=== PATIENT | female | born 1965 | race Caucasian/White ===

== ENCOUNTER 2016-12-29 13:35 | Emergency (ER) | payer OTHER ==
[2016-12-29 13:55] VITALS: BP 117/55; PULSE 68; TEMP 98; BMI 22.6
[2016-12-29 14:07] LABS: URINE APPEARANCE Cloudy; URINE BILIRUBIN Negative (NEGATIVE); URINE BLOOD Negative (NEGATIVE); URINE COLOR YELLOW; URINE GLUCOSE (UA) Negative (NEGATIVE); URINE KETONE Negative (NEGATIVE); URINE LEUK ESTERASE Negative (NEGATIVE); URINE NITRITE Negative (NEGATIVE); URINE PROTEIN Negative (NEGATIVE); URINE UROBILINOGEN 0.2 E.U/dl (0.2-1.0)
--- NOTE | 2016-12-29 14:55 | PDOC ---
History of Present Illness <Robel Dennis - Last Filed: 12/29/16 15:05> - History of Present Illness Initial Comments: History of Present Illness <Regina Santos - Last Filed: 12/29/16 14:52> - General History Source: Patient Exam Limitations: No Limitations - History of Present Illness Initial Comments: 12/29/16 14:55 The patient is a 51 year old female, with a significant past medical history of tubal ligation, uterine fibroids, endometrial ablation, who presents to the emergency department with LUQ pain for about an hour. The patient reports a sudden onset of LUQ pain a little after eating a vegetarian meal, and having left sided abdominal pain for about 40 minutes. She reports the pain was so intense she was doubled over in pain and was unable to speak secondary to pain. She reports during this episode of pain the abdominal pain would radiate to her stomach area . She describes her pain as sharp, ranking her pain a 5/10 in pain intensity. She reports also having feelings of nausea during the episode of abdominal pain. She reports 5-10 minutes prior to being seen in the ER her abdominal pain has decreased and subsided. Patient is a vegetarian for over 30 years. Patient denies having a bowel movement this morning. She denies recent fevers, chills, headache or dizziness. She denies recent vomit, diarrhea or constipation. She denies recent dysuria, frequency, urgency or hematuria. She denies recent chest pain or shortness of breath. She denies any other complaints at this time, and the remainder of the review of systems is negative. Allergies: Amoxicillin (hives) Past surgical history: Tubal ligation and Social history: Nonsmoker. Denies EtOH use and drug use. PCP: <Robel Dennis - Last Filed: 12/29/16 14:55> <Regina Santos - Last Filed: 12/31/16 21:09> - General Chief Complaint: Pain Stated Complaint: LUQ PAIN FOR 1 HOUR Time Seen by Provider: 12/29/16 14:00 Past History <Robel Dennis - Last Filed: 12/29/16 15:05> - Psycho/Social/Smoking Cessation Hx Anxiety: No Suicidal Ideation: No Smoking History: Never smoked Hx Alcohol Use: No Drug/Substance Use Hx: No Substance Use Type: None <ElliotBarbaraRegina webster - Last Filed: 12/31/16 21:09> - Past Medical History Allergies/Adverse Reactions: Allergies Allergy/AdvReac Type Severity Reaction Status Date / Time amoxicillin Allergy Mild Hives Verified 12/29/16 13:48 Home Medications: Ambulatory Orders Multivitamins [Tab-A-Vit -] 1 tab PO DAILY 12/29/16 *Physical Exam - Vital Signs Last Vital Signs Temp Pulse Resp BP Pulse Ox 98.0 F 68 15 117/55 100 12/29/16 13:46 12/29/16 13:46 12/29/16 13:46 12/29/16 13:46 12/29/16 13:46 <Robel Dennis - Last Filed: 12/29/16 15:05> - Vital Signs Last Vital Signs Temp Pulse Resp BP Pulse Ox 98.0 F 68 15 117/55 100 12/29/16 13:46 12/29/16 13:46 12/29/16 13:46 12/29/16 13:46 12/29/16 13:46 - Physical Exam Comments: 12/29/16 14:53 Physical exam Last Vital Signs Temp Pulse Resp BP Pulse Ox 98.0 F 68 15 117/55 100 12/29/16 13:46 12/29/16 13:46 12/29/16 13:46 12/29/16 13:46 12/29/16 13:46 GENERAL: The patient is awake, alert, and fully oriented, and in no apparent distress. HEAD: Normal with no signs of trauma. EYES: Sclera anicteric, conjunctiva normal ENT: Moist mucous membranes. NECK: Normal range of motion, supple LUNGS: Breath sounds equal, clear to auscultation bilaterally. No wheezes, and no crackles. HEART: Regular rate and rhythm, normal S1 and S2 without murmur, rub or gallop. ABDOMEN: The abdomen is soft with increased bowel sounds and increased borborygmi There is some mild left upper quadrant tenderness to palpation without guarding or rebound There is no other abdominal tenderness, there is no hepatosplenomegaly There is no CVA tenderness EXTREMITIES: Normal range of motion, no edema. No clubbing or cyanosis. No cords, erythema, or tenderness. NEUROLOGICAL: Cranial nerves II through XII grossly intact. Normal speech, normal gait. PSYCH: Normal mood, normal affect. SKIN: Warm, Dry, normal turgor, no rashes or lesions noted. <Regina Santos - Last Filed: 12/31/16 21:09> ED Treatment Course - ADDITIONAL ORDERS Additional order review: Laboratory Results 12/29/16 13:55 Urine Color Yellow Urine Appearance Cloudy Urine pH 8.0 Ur Specific Hines 1.015 Urine Protein Negative Urine Glucose (UA) Negative Urine Ketones Negative Urine Blood Negative Urine Nitrite Negative Urine Bilirubin Negative Urine Urobilinogen 0.2 e.u/dl Ur Leukocyte Esterase Negative <Robel Dennis - Last Filed: 12/29/16 15:05> - LABORATORY CBC & Chemistry Diagram: 12/29/16 15:00 12/29/16 15:00 - ADDITIONAL ORDERS Additional order review: Laboratory Results 12/29/16 13:55 Urine Color Yellow Urine Appearance Cloudy Urine pH 8.0 Ur Specific Hines 1.015 Urine Protein Negative Urine Glucose (UA) Negative Urine Ketones Negative Urine Blood Negative Urine Nitrite Negative Urine Bilirubin Negative Urine Urobilinogen 0.2 e.u/dl Ur Leukocyte Esterase Negative - RADIOLOGY Radiology Studies Ordered: Category Date Time Status ABDOMEN FLAT & UPRIGHT [RAD] Stat Radiology 12/29/16 14:51 Ordered <Regina Santos - Last Filed: 12/31/16 21:09> Medical Decision Making - Medical Decision Making 12/29/16 15:08 51-year-old female had the sudden onset of sharp left upper quadrant abdominal pain after eating vegetarian meal She she states she did not have a bowel movement this morning She describes the pain as sharp and stabbing, and occurring right after she She was nauseated but did not vomit She did not have a bowel movement this morning She denies any recent intercurrent illnesses She states the pain lasted an hour, and is now starting to fade and almost gone 12/29/16 17:29 Two-view abdomen Constipation, no signs of obstruction or free air Laboratory Results - last 24 hr 12/29/16 12/29/16 12/29/16 13:55 15:00 15:00 WBC 7.6 RBC 5.12 Hgb 13.3 Hct 40.2 MCV 78.5 L MCHC 33.1 RDW 14.1 Plt Count 233 MPV 8.7 Sodium 137 Potassium 4.1 Chloride 101 Carbon Dioxide 28 Anion Gap 8 BUN 21 H Creatinine 0.6 Creat Clearance w eGFR > 60 Random Glucose 92 Calcium 9.3 Total Bilirubin 0.4 AST 24 ALT 22 Alkaline Phosphatase 57 Total Protein 7.0 Albumin 4.0 Urine Color Yellow Urine Appearance Cloudy Urine pH 8.0 Ur Specific Hines 1.015 Urine Protein Negative Urine Glucose (UA) Negative Urine Ketones Negative Urine Blood Negative Urine Nitrite Negative Urine Bilirubin Negative Urine Urobilinogen 0.2 e.u/dl Ur Leukocyte Esterase Negative Patient feels much better now on pain is gone She now states that she hasn't had a bowel movement for 2 days We'll try some milk of magnesia tonight <Regina Santos - Last Filed: 12/31/16 21:09> *DC/Admit/Observation/Transfer <Robel Dennis - Last Filed: 12/29/16 15:05> <Regina Santos - Last Filed: 12/31/16 21:09> Diagnosis at time of Disposition: Constipation, Resolved abdominal pain - Discharge Dispostion Disposition: HOME Condition at time of disposition: Good - Referrals Referrals: Liz Connolly [Primary Care Provider] - - Patient Instructions Printed Discharge Instructions: Constipation, DI for Constipation Additional Instructions: you can try milk of magnesia or miralax tonight Increase fluid intake Followup with your primary care physician in 24-48 hours Return immediately if you worsen in any way Take your medications as directed
[2016-12-29 16:01] LABS: MCHC 33.1 g/dl (32.0-36.0); MEAN CELL VOLUME 78.5 fl (80-96); MEAN PLT VOLUME 8.7 fl (7.5-11.1); PLATELET COUNT 233 K/MM3 (134-434); RDW 14.1 % (11.6-15.6); WHITE BLOOD COUNT 7.6 K/mm3 (4.0-10.0)
[2016-12-29 16:20] LABS: ALK PHOS 57 U/L (32-92); ANION GAP 8 (8-16); BILIRUBIN,TOTAL 0.4 mg/dl (0.2-1.0); CALCIUM 9.3 mg/dl (8.4-10.2); CO2 28 mmol/L (22-28); CREATININE 0.6 mg/dl (0.6-1.3); GLUCOSE,RANDOM 92 mg/dl (74-106); SGOT/AST 24 U/L (10-42); SGPT/ALT 22 U/L (10-40)
== END 2016-12-29 17:39 | disposition home or self-care (01) ==
LOC: FER 13:35
DX: K59.00 Constipation, unspecified (principal); D25.9 Leiomyoma of uterus, unspecified
CPT/HCPCS: 36415; 74020-TC; 80053; 81003; 85027; 99283-25

== ENCOUNTER 2018-02-07 14:13 | Emergency (ER) | payer OTHER ==
[2018-02-07 14:30] VITALS: BP 103/69; PULSE 83; TEMP 98.9; BMI 23.0
--- NOTE | 2018-02-07 15:18 | PDOC ---
History of Present Illness - General History Source: Patient Exam Limitations: No Limitations - History of Present Illness Initial Comments: 02/07/18 15:24 The patient is a 52 year old female, with a significant past medical history of tubal ligation, uterine fibroids, endometrial ablation, who presents to the emergency department with, right calf pain for approx 3 hours. The patient states she was playing tennis around noon when she lunged forward and felt a pop in her right calf. She denies any falls or head strike/injury or loss of consciousness. The patient states that the right calf pain is made worse when walking or driving and alleviated while at rest. She denies any numbness, tingling or loss of sensation. She denies any neck or back pain. She denies recent fevers, chills, headache or dizziness. She denies recent nausea, vomit, diarrhea or constipation. She denies recent chest pain or shortness of breath. Allergies: Amoxicillin Past surgical history: Tubal ligation and Social history: Nonsmoker. Denies EtOH use and recreational drug use. Primary Care Physician: Dr. Connolly <Vic Mahmood - Last Filed: 02/07/18 15:36> <Vane Alcaraz - Last Filed: 02/10/18 08:07> - General Chief Complaint: Injury Stated Complaint: RIGHT CALF PAIN WHILE PLAYING TENNIS Time Seen by Provider: 02/07/18 15:08 Past History <Vic Mahmood - Last Filed: 02/07/18 15:36> - Past Medical History COPD: No Other medical history: DENIES - Suicide/Smoking/Psychosocial Hx Smoking History: Never smoked Information on smoking cessation initiated: No Hx Alcohol Use: No Drug/Substance Use Hx: No Substance Use Type: None <Vane Alcaraz - Last Filed: 02/10/18 08:07> - Past Medical History Allergies/Adverse Reactions: Allergies Allergy/AdvReac Type Severity Reaction Status Date / Time amoxicillin Allergy Mild Hives Verified 02/07/18 14:16 Home Medications: Ambulatory Orders Multivitamins [Tab-A-Vit -] 1 tab PO DAILY 12/29/16 Review of Systems - Review of Systems Comments:: 02/07/18 15:24 GENERAL/CONSTITUTIONAL: No fever or chills. No weakness. HEAD, EYES, EARS, NOSE AND THROAT: No change in vision. No ear pain or discharge. No sore throat. CARDIOVASCULAR: No chest pain or shortness of breath. RESPIRATORY: No cough, wheezing, or hemoptysis. GASTROINTESTINAL: No nausea, vomiting, diarrhea or constipation. GENITOURINARY: No dysuria, frequency, or change in urination. MUSCULOSKELETAL: +Right calf pain. No neck or back pain. SKIN: No rash NEUROLOGIC: No headache, vertigo, loss of consciousness, or change in strength/ sensation. ENDOCRINE: No increased thirst. No abnormal weight change. HEMATOLOGIC/LYMPHATIC: No anemia, easy bleeding, or history of blood clots. ALLERGIC/IMMUNOLOGIC: No hives or skin allergy. <Vic Mahmood - Last Filed: 02/07/18 15:36> *Physical Exam - Vital Signs Last Vital Signs Temp Pulse Resp BP Pulse Ox 98.9 F 83 16 103/69 97 02/07/18 14:15 02/07/18 14:15 02/07/18 14:15 02/07/18 14:15 02/07/18 14:15 - Physical Exam Comments: 02/07/18 15:36 GENERAL: Awake, alert, and fully oriented, in no acute distress HEAD: No signs of trauma EYES: PERRLA, EOMI, sclera anicteric, conjunctiva clear ENT: Auricles normal inspection, hearing grossly normal, nares patent, oropharynx clear without exudates. Moist mucosa NECK: Normal ROM, supple, no lymphadenopathy, JVD, or masses LUNGS: Breath sounds equal, clear to auscultation bilaterally. No wheezes, and no crackles HEART: Regular rate and rhythm, normal S1 and S2, no murmurs, rubs or gallops ABDOMEN: Soft, nontender, normoactive bowel sounds. No guarding, no rebound. No masses EXTREMITIES: +Tenderness to the medial portion of the right gastrocnemius. Normal range of motion, no edema. No clubbing or cyanosis. No cords, erythema. NEUROLOGICAL: Cranial nerves II through XII grossly intact. Normal speech, normal gait SKIN: Warm, Dry, normal turgor, no rashes or lesions noted. <Vic Mahmood Last Filed: 02/07/18 15:36> - Vital Signs Last Vital Signs Temp Pulse Resp BP Pulse Ox 98.9 F 83 16 103/69 97 02/07/18 14:15 02/07/18 14:15 02/07/18 14:15 02/07/18 14:15 02/07/18 14:15 <Vane Alcaraz - Last Filed: 02/10/18 08:07> Medical Decision Making - Medical Decision Making Achilles tendon function intact, however, patient having pain with ambulation. No bony tenderness. Improved with crutches. I recommended NSAIDs for inflammation. I suspect this is a muscular injury, however, recommended that she f/u with ortho in about 1 week if she does not have significant improvement. <Vane Alcaraz - Last Filed: 02/10/18 08:07> *DC/Admit/Observation/Transfer - Attestations Scribe Attestion: 02/07/18 15:25 Documentation prepared by Vic Mahmood, acting as medical artist for Vane Alcaraz MD. <Vic Mahmood - Last Filed: 02/07/18 15:36> - Discharge Dispostion Admit: No <Vane Alcaraz - Last Filed: 02/10/18 08:07> Diagnosis at time of Disposition: Gastrocnemius muscle strain Qualifiers: Encounter type: initial encounter Laterality: right Qualified Code(s): S86.111A - Strain of other muscle(s) and tendon(s) of posterior muscle group at lower leg level, right leg, initial encounter - Discharge Dispostion Disposition: HOME Condition at time of disposition: Stable - Referrals Referrals: Pro Freitas MD [Staff Physician] - - Patient Instructions Printed Discharge Instructions: DI for Calf Muscle Strain Additional Instructions: Motrin as needed for pain/inflammation. Follow up with orthopedics within 1 week.
== END 2018-02-07 15:45 | disposition home or self-care (01) ==
LOC: FER 14:13
DX: S86.111A Strain of other muscle(s) and tendon(s) of posterior muscle group at lower leg level, right leg, initial encounter (principal); X58.XXXA Exposure to other specified factors, initial encounter; Y93.73 Activity, racquet and hand sports; Y92.312 Tennis court as the place of occurrence of the external cause
CPT/HCPCS: 99281-25

== ENCOUNTER 2018-07-08 16:02 | Emergency (ER) | payer OTHER ==
[2018-07-08 16:16] VITALS: BP 113/81; PULSE 79; TEMP 98.7; BMI 23.3
--- NOTE | 2018-07-08 16:29 | PDOC ---
History of Present Illness - General Chief Complaint: Injury Stated Complaint: RT HAND INJURY Time Seen by Provider: 07/08/18 16:10 History Source: Patient Exam Limitations: No Limitations - History of Present Illness Initial Comments: 53 yo F no significant PMH presents with R hand pain. She states that it got caught in a heavy door 2 days ago, now having pain to the R hand over the 5th finger, at the base, and radiating into the wrist. No weakness, numbness. Past History - Past Medical History Allergies/Adverse Reactions: Allergies Allergy/AdvReac Type Severity Reaction Status Date / Time amoxicillin Allergy Mild Hives Verified 07/08/18 16:04 Home Medications: Ambulatory Orders NK [No Known Home Medication] 07/08/18 COPD: No - Suicide/Smoking/Psychosocial Hx Smoking History: Never smoked Have you smoked in the past 12 months: No Hx Alcohol Use: (social) Drug/Substance Use Hx: No Substance Use Type: None Review of Systems - Review of Systems Able to Perform ROS?: Yes Comments:: GENERAL/CONSTITUTIONAL: No fever or chills. No weakness. HEAD, EYES, EARS, NOSE AND THROAT: No change in vision. No ear pain or discharge. No sore throat. MUSCULOSKELETAL: +R hand pain. No neck or back pain. SKIN: No rash NEUROLOGIC: No headache, vertigo, loss of consciousness, or change in strength/ sensation. ENDOCRINE: No increased thirst. No abnormal weight change. HEMATOLOGIC/LYMPHATIC: No anemia, easy bleeding, or history of blood clots. ALLERGIC/IMMUNOLOGIC: No hives or skin allergy. *Physical Exam - Vital Signs Last Vital Signs Temp Pulse Resp BP Pulse Ox 98.7 F 79 18 113/81 99 07/08/18 16:02 07/08/18 16:02 07/08/18 16:02 07/08/18 16:02 07/08/18 16:02 - Physical Exam Comments: GENERAL: Awake, alert, and fully oriented, in no acute distress HEAD: No signs of trauma EYES: PERRLA, EOMI, sclera anicteric, conjunctiva clear ENT: Auricles normal inspection, hearing grossly normal, nares patent, oropharynx clear without exudates. Moist mucosa EXTREMITIES: +R hand with tenderness over the 5th metacarpal. No deformity noted. +Tenderness over the forearm, overlying the distal ulna. No deformity. Remainder of extremities with normal range of motion, no edema. No clubbing or cyanosis. No cords, erythema, or tenderness NEUROLOGICAL: Cranial nerves II through XII grossly intact. Normal speech, normal gait SKIN: Warm, Dry, normal turgor, no rashes or lesions noted. ED Treatment Course - RADIOLOGY Radiology Studies Ordered: 07/08/18 17:03 XR Hand and wrist reviewed, no acute findings. *DC/Admit/Observation/Transfer Diagnosis at time of Disposition: Contusion of hand Qualifiers: Encounter type: initial encounter Laterality: right Qualified Code(s): S60.221A - Contusion of right hand, initial encounter - Discharge Dispostion Disposition: HOME Condition at time of disposition: Stable Decision to Admit order: No - Referrals Referrals: Willie Grace [Primary Care Provider] - - Patient Instructions Printed Discharge Instructions: DI for Contusion - Post Discharge Activity
== END 2018-07-08 17:10 | disposition home or self-care (01) ==
LOC: FER 16:02
DX: S60.221A Contusion of right hand, initial encounter (principal); W20.8XXA Other cause of strike by thrown, projected or falling object, initial encounter; Y93.89 Activity, other specified; Y92.9 Unspecified place or not applicable
CPT/HCPCS: 73110-TC-RT-FY; 73130-TC-RT-FY; 99282-25

== ENCOUNTER 2019-07-17 10:56 | Emergency (ER) | payer OTHER | END 2019-07-17 13:06 | disposition home or self-care (01) | LOC: FER 10:56 ==

== ENCOUNTER 2019-09-29 15:18 | Emergency (ER) | payer OTHER ==
--- NOTE | 2019-09-29 15:24 | PDOC ---
History of Present Illness - General Chief Complaint: Vaginal Sxs Stated Complaint: VAGINAL PAIN, MOUTH LESION Time Seen by Provider: 09/29/19 15:24 History Source: Patient Exam Limitations: No Limitations - History of Present Illness Initial Comments: 54 year old female with PMH genital/oral herpes (diagnoes x20 years ago, only 2 genital outbreaks), STI (treated x20 years ago, unknown organism) presented to ED for vulvar pain x2 days. Pt reported she has had oral outbreaks when she is stressed, but doesnt usually have genital lesions. She reported 2 days of intense vulvar pain, worse with urination (mentioning that the urine will hurt the skin when it touches it). She admitted to bloody/green discharge x3 weeks to which she attributes to her menopause. She denied abdominal pain, fever, malaise, chest pain, shortness of breath. PT has no PCP or OBGYN because "I am a vegan and figure I am healthy". ROS General: denied fever, chills, generalized weakness. HEENT: denied sore throat, rhinorrhea, ear pain. Cardiovascular: denied chest pain, palpitations, syncope, diaphoresis. Respiratory: denied shortness of breath, cough, sputum production, hemoptysis. Gastrointestinal: denied abdominal pain, nausea, vomiting, diarrhea, constipation, blood in stool. Genitourinary: admitted to pelvic pain, dysuria, vaginal discharge, vaginal bleeding. denied increased urinary frequency, hematuria, urinary incontinence, flank pain. Back: denied back pain. Musculoskeletal: denied joint pain, muscle pain, joint swelling. Neurological: denied headache, dizziness, numbness, tingling, weakness. Integumentary: denied rash, laceration, abrasion. Hematologic/Lymphatic: denied bruising or bleeding. PE Constitutional: Well-nourished, Well-developed, appearing stated age. HEENT: head is normocephalic, atraumatic. EOMI. PERRLA. crusted circular lesion to lip. Neck: supple. Full ROM. Cardiovascular: regular heart rhythm. no murmurs. no pericardial friction rub. Respiratory: clear to auscultation bilaterally. no crackles, rhonchi or wheezing. no stridor. Gastrointestinal: soft, nontender. normal bowel sounds. no rebound, guarding, masses. Extremities: peripheral pulses intact. no lower extremity edema. Pelvic: pustular lesions with erythematous bases. erythematous vulva. no CMT. no adnexal tenderness. vaginal vault with no pooling, mild brown blood and white discharge noted. Neurological: CN 2-12 grossly intact. moves all four extremities. Psych: awake, alert, oriented x3. follows commands. answers questions appropriately. Past History - Past Medical History Allergies/Adverse Reactions: Allergies Allergy/AdvReac Type Severity Reaction Status Date / Time amoxicillin Allergy Mild Hives Verified 09/29/19 15:25 Home Medications: Ambulatory Orders Acyclovir [Zovirax -] 400 mg PO TID #15 tablet 09/29/19 - Psycho Social/Smoking Cessation Hx Smoking History: Never smoked Have you smoked in the past 12 months: No Hx Alcohol Use: No Drug/Substance Use Hx: No Substance Use Type: None Medical Decision Making - Medical Decision Making 54 year old female with above PMH presented to ED for vulvar pain x2 days and vaginal discharge/bleeding x3 weeks. Initial Vital Signs Temp Pulse Resp BP Pulse Ox 97.8 F 78 18 121/67 100 09/29/19 15:18 09/29/19 15:18 09/29/19 15:18 09/29/19 15:18 09/29/19 15:18 Afebrile. No tachycardia. No tachypnea. No hypotension. No hypoxia on room air. Labs ordered: UA/UC, GC/Chlamydia endocervical amplification Medications ordered: Imaging ordered: none 09/29/19 16:27 Urine Test Results Urine Color Yellow 09/29/19 16:02 Urine Appearance Clear 09/29/19 16:02 Urine pH 7.5 (4.5-8) 09/29/19 16:02 Urine Protein Negative (NEGATIVE) 09/29/19 16:02 Urine Glucose (UA) Negative (NEGATIVE) 09/29/19 16:02 Urine Ketones Negative (NEGATIVE) 09/29/19 16:02 Urine Blood 2+ (NEGATIVE) H 09/29/19 16:02 Urine Nitrite Negative (NEGATIVE) 09/29/19 16:02 Urine Bilirubin Negative (NEGATIVE) 09/29/19 16:02 Ur Leukocyte Esterase 1+ (NEGATIVE) 09/29/19 16:02 Urine RBC 5-10 /hpf (0-4) 09/29/19 16:02 Urine WBC 5-10 (NEGATIVE) 09/29/19 16:02 Urine Bacteria Few /hpf (NEGATIVE) 09/29/19 16:02 No UTI. Will prescribe Acyclovir 400 mg PO TID x5 days based on current guidelines for recurrent herpes lesion. Pt discharged. Pt given OBGYN F/U. Discharge - Discharge Information Problems reviewed: Yes Clinical Impression/Diagnosis: Herpes simplex of female genitalia Condition: Stable Disposition: HOME - Admission No - Additional Discharge Information Prescriptions: Acyclovir [Zovirax -] 400 mg PO TID #15 tablet - Follow up/Referral Referrals: Dino Lopes MD [Staff Physician] - Aarti Caceres DO [Staff Physician] - Sandra Patel MD [Staff Physician] - Frederick Martinez MD [Staff Physician] - - Patient Discharge Instructions Patient Printed Discharge Instructions: DI for Genital Herpes, DI for Cold Sores Additional Instructions: Follow up with an OBGYN within 5 days regarding your Emergency Room visit. Your care is not complete until you follow up. I have provided you with multiple referrals. Take the anti-viral I sent to the pharmacy. Take as advised on label. Do not stop early even if you are feeling better. Take Tylenol and/or Ibuprofen over the counter for pain. Take as advised on labels. They are not the same medication and can be taken together. Return to the Emergency Department for increasing pain, chest pain, shortness of breath, vomiting, fever, lightheadedness, or any other new, worsening or concerning symptoms. You will be called with the results of your Gonorrhea / Chlamydia testing if it is positive. It takes a few days to come back. A culture of your urine was sent, it takes a few days to result, if it is positive you will be called. You can also call at any time to check on your results. - Post Discharge Activity Work/Back to School Note: Back to Work
[2019-09-29 15:34] VITALS: BP 121/67; PULSE 78; TEMP 97.8; BMI 23.9
[2019-09-29 16:17] LABS: AMORP PHOS 1+ /hpf (NONE SEEN); EPITHELIAL CELLS MODERATE /hpf
--- NOTE | 2019-09-29 16:22 | PDOC ---
Attending Attestation - Resident Resident Name: Cyndy Post - ED Attending Attestation I have performed the following: I have examined & evaluated the patient, The case was reviewed & discussed with the resident, I agree w/resident's findings & plan, Exceptions are as noted - HPI HPI: 09/29/19 16:15 54y y F hx of genital/oral herpes, presents with complaint of intense vulvar pain x 2 days and notes pain when she urinates on ther skin She also notse reddish/greenish discharge for several weeks. Pt has not had intercourse for the psat 4 months. Denies any fever/chills, abd pain, back pain. exam: well appearing, in no distress pelvic exam as reported by dr. post described as pusutles on reddish base c/w herpes ua is contaimnated, but does not appear to be uti burning likely from herpes lesions will treat with acyclovir
[2019-09-29] MEDS ORDERED: ACYCLOVIR 400 MG TABLET PO ONE (16:46)
[2019-09-29] MEDS ORDERED: ACYCLOVIR 400 MG TABLET ONE (16:47)
== END 2019-09-29 17:00 | disposition home or self-care (01) ==
LOC: FER 15:18
DX: A60.09 Herpesviral infection of other urogenital tract (principal); Z87.42 Personal history of other diseases of the female genital tract; Z88.0 Allergy status to penicillin
CPT/HCPCS: 36415; 81003; 81015; 87086; 87491; 87591; 99283-25